=== PATIENT | female | born 1995 | race African-American/Black ===

== ENCOUNTER 2018-02-16 11:58 | Emergency (ER) | payer MEDICAID ==
[~2018-02-16] VITALS: Ht 157.5 cm; Wt 61.2 kg
[2018-02-16] MEDS ORDERED: ZOFRAN4 M3 ORAL (12:05)
[2018-02-16] MEDS ORDERED: PRENATAL FORMU1 EAC5 PO (12:05)
--- NOTE | 2018-02-16 12:12 | Emergency Room Report ---
History of Present Illness General Chief Complaint: Complications Source: Patient Present Illness HPI 22 yo female patient presents to ER complaining of vaginal spotting and cramping since this morning. Denies sharp abdominal pain, denies radiation of pain. Patient reports she is 7.5 weeks . Reports first . Patient denies use of pads. Also complains of morning sickness, denies blood in emesis. Patient reports single visit to OBGYN, currently taking Zofran and vitamins. Reports last took medication yesterday. Reports hx of follicular cyst removed by surgery; reports no complications since that time. Denies hx of blood pressure problems or past medical hx. Denies sonogram with IUP; reports followup appointment with OBGYN on the fifth with US scheduled. Denies passage of clots. Denies hematuria, dysuria. Denies hx of STI. Reports does not know BetaHCG level, states was confirmed by urine test. Denies fainting. Patient does not know Rh status.. Denies fever, chest pain, SOB, calf pain, LARRY, vision changes. Allergies: Coded Allergies: No Known Allergies (Unverified , 02/16/18) Patient History Past Medical History: see triage record Last Menstrual Period: dec 22 Now: Yes - 7 weeks : 1 Para: 0 Reviewed Nursing Documentation: PMH: Agreed; PSxH: Agreed Nursing Documentation-PMH Past Medical History: No Stated History Review of Systems All Other Systems: negative except mentioned in HPI Physical Exam Vital Signs Date Time Temp Pulse Resp B/P (MAP) Pulse Ox O2 Delivery O2 Flow Rate FiO2 02/16/18 12:00 97.9 89 18 115/74 98 Room Air 97.9 Sp02 EP Interpretation: reviewed, normal General Appearance: well appearing, no apparent distress, alert, GCS 15, non- toxic Head: normocephalic, atraumatic Eyes: bilateral eye normal inspection, bilateral eye PERRL ENT: hearing grossly normal, normal pharynx, no angioedema, normal voice, uvula midline, moist mucus membranes Neck: full range of motion Respiratory: lungs clear, normal breath sounds, no rhonchi, no respiratory distress, no accessory muscle use, no wheezing, speaking full sentences Cardiovascular #1: regular rate, rhythm, no edema Gastrointestinal: non tender, soft, no mass, non-distended, no guarding, no rebound Genitourinary: no CVA tenderness, deferred Musculoskeletal: back normal, digits/nails normal, gait/station normal, normal range of motion, non-tender Neurologic: alert, oriented x3, responsive, motor strength/tone normal, sensory intact Psychiatric: mood/affect normal Skin: no rash Lymphatic: no adenopathy Medical Decision Making PA Attestation Dr. Coon is my supervising Physician whom patient management has been discussed with. Diagnostic Impression: Primary Impression: Hyperemesis of Additional Impressions: Urinary tract infection Subchorionic hemorrhage Absent heart rate variability ER Course Pt presents to ED c/o vaginal spotting. DDX considered but are not limited to threatened , incomplete , complete , ectopic, UTI, septic . VITAL SIGNS are WNL, patient is afebrile Ordered CBC, CMP, Type and Screen, UA, UCG, bHCG, IV NS and pelvic US. Tylenol for pain control. Zofran for nausea. ER COURSE: Patient resting comfortably, in no acute distress, nontoxic appearing. Patient reports pain symptoms resolved since onset. Pelvic deferred. CBC shows WBC elevated to 13.9. CMP shows no elevation in LFTs UA results negative for nitrites, elevated WBC and leukocyte esterase. Equivocal UTI, will treat with abx at this time. Urine positive BetaHCG 78,328 Rh antibody negative Blood type B+ Informed patient of results. Discussed results with Dr. Coon, mild elevation in WBC during normal. Informed patient to take Tylenol only for pain symptoms, do not take Motrin/ Ibuprofen. Patient resting comfortably in no acute distress. Patient reports she is hungry and wants to go eat food. Did not like food provided in ER. US results show no pole or HR, gestational sac present, subchorionic hemorrhage. Discuss results with patient. Informed patient may be onset of /losing or gestational age may be incorrect, may be less than 7.5 weeks. Report of US provided to patient. Instructed to contact OBGYN to discuss followup. F/u with OBGYN for repeat US and serial Beta HCG measurements. Patient reports scheduled appointment next week. Instructed patient to call and inform OBGYN of results in ER today. Patient reports will do so. Take Zofran for vomiting. DISCHARGE: -Rx provided for Tylenol for pain -Rx provided for Keflex for UTI At this time pt. is stable for d/c to home. At this time patient is resting comfortably, in no acute distress, nontoxic appearing, smiling and talking without difficulty. Will provide printed patient care instructions, and any necessary prescriptions. Patient instructed to follow with OBGYN for further treatment and referral as needed. Care plan and follow up instructions have been discussed with the patient prior to discharge. Patient reports understanding and agreement to treatment plan. Patient questions asked and answered. ER precautions given, patient instructed to return to ER immediately for any new or worsening of symptoms. Labs Test 02/16/18 12:05 02/16/18 12:30 Urine Color Yellow Urine Appearance Slightly cloudy Urine pH 6 (4.5-8.0) Urine Specific [place] 1.015 (1.005-1.035) Urine Protein 1+ (NEGATIVE) Urine Glucose (UA) Negative (NEGATIVE) Urine Ketones 4+ (NEGATIVE) Urine Occult Blood 1+ (NEGATIVE) Urine Nitrite Negative (NEGATIVE) Urine Bilirubin Negative (NEGATIVE) Urine Urobilinogen Normal MG/DL (0.0-1.0) Urine Leukocyte Esterase 1+ (NEGATIVE) Urine RBC 0-2 /HPF (0 - 2) Urine WBC 5-10 /HPF (0 - 2) Urine Squamous Epithelial Cells Few /LPF (NONE/OCC) Urine Bacteria Few /HPF (NONE) Urine Mucus Few /LPF (NONE/OCC) Urine HCG, Qualitative Positive (NEGATIVE) White Blood Count 13.9 K/UL (4.8-10.8) Red Blood Count 5.26 M/UL (4.20-5.40) Hemoglobin 14.9 G/DL (12.0-16.0) Hematocrit 45.8 % (37.0-47.0) Mean Corpuscular Volume 87 FL (80-99) Mean Corpuscular Hemoglobin 28.3 PG (27.0-31.0) Mean Corpuscular Hemoglobin Concent 32.5 G/DL (32.0-36.0) Red Cell Distribution Width 12.4 % (11.6-14.8) Platelet Count 344 K/UL (150-450) Mean Platelet Volume 6.2 FL (6.5-10.1) Neutrophils (%) (Auto) % (45.0-75.0) Lymphocytes (%) (Auto) % (20.0-45.0) Monocytes (%) (Auto) % (1.0-10.0) Eosinophils (%) (Auto) % (0.0-3.0) Basophils (%) (Auto) % (0.0-2.0) Differential Total Cells Counted 100 Neutrophils % (Manual) 91 % (45-75) Lymphocytes % (Manual) 7 % (20-45) Monocytes % (Manual) 2 % (1-10) Eosinophils % (Manual) 0 % (0-3) Basophils % (Manual) 0 % (0-2) Band Neutrophils 0 % (0-8) Platelet Estimate Adequate Platelet Morphology Normal Red Blood Cell Morphology Normal Sodium Level 137 MMOL/L (136-145) Potassium Level 4.3 MMOL/L (3.5-5.1) Chloride Level 103 MMOL/L (98-107) Carbon Dioxide Level 27 MMOL/L (21-32) Anion Gap 7 mmol/L (5-15) Blood Urea Nitrogen 9 mg/dL (7-18) Creatinine 0.7 MG/DL (0.55-1.30) Estimat Glomerular Filtration Rate > 60 mL/min (>60) Glucose Level 80 MG/DL (74-106) Calcium Level 8.8 MG/DL (8.5-10.1) Total Bilirubin 0.2 MG/DL (0.2-1.0) Aspartate Amino Transf (AST/SGOT) 22 U/L (15-37) Alanine Aminotransferase (ALT/SGPT) 25 U/L (12-78) Alkaline Phosphatase 57 U/L (46-116) Total Protein 7.6 G/DL (6.4-8.2) Albumin 3.6 G/DL (3.4-5.0) Globulin 4.0 g/dL Albumin/Globulin Ratio 0.9 (1.0-2.7) Lipase 220 U/L (73-393) Human Chorionic Gonadotropin, Quant 35240 mIU/mL (1-6) CT/MRI/US Diagnostic Results CT/MRI/US Diagnostic Results : Imaging Test Ordered: Pelvic US Impression Intrauterine gestational sac, containing a yolk sac pole or heart activity are not visualized. Viability of the therefore indeterminate. Recommend correlation with serial beta-hCGs and recommend follow- up sonography as indicated Suspect small subchorionic hemorrhage Small amount free cul-de-sac fluid, presumed physiologic Normal ovaries Last Vital Signs Date Time Temp Pulse Resp B/P (MAP) Pulse Ox O2 Delivery O2 Flow Rate FiO2 02/16/18 12:00 97.9 89 18 115/74 98 Room Air 97.9 Disposition: HOME, SELF-CARE Condition: Stable Scripts Acetaminophen* (TYLENOL EXTRA STRENGTH*) 500 Mg Tablet 500 MG ORAL Q8H PRN for Prn Headache/Temp > 101, #30 TAB 0 Refills Prov: Gerardo Lorenzo 02/16/18 Cephalexin* (KEFLEX*) 500 Mg Capsule 500 MG ORAL EVERY 12 HOURS for 7 Days, #14 CAP 0 Refills Prov: Gerardo Lorenzo 02/16/18 Patient Instructions: First Trimester of , [id number], Hyperemesis Gravidarum, Urinary Tract Infection, [id number], Vaginal Bleeding During , First Trimester, [id number] Additional Instructions: Followup with OBGYN at scheduled appointment on the 26 of February. Serial beta HCG measurements and repeat US performed at followup appointment. Take medications as directed. Take Tylenol for pain, do not take Ibuprofen. Take Zofran for nausea symptoms. Patient questions asked and answered. ER precautions given, patient instructed to return to ER immediately for any new or worsening of symptoms including but not limited to chest pain, SOB, intractable vomiting, profuse vaginal bleeding, abdominal pain. BetaHCG 78,328 Rh antibody negative Blood type B+ Gerardo Lorenzo Feb 16, 2018 12:11
[2018-02-16] MEDS ORDERED: Acetaminophen 500mg (ES) tab ORAL ONE (12:15)
[2018-02-16 13:04] LABS: HEMATOCRIT 45.8 % (37.0-47.0); HEMOGLOBIN 14.9 G/DL (12.0-16.0); MEAN CORPUSCULAR VOLUME 87 FL (80-99); PLATELET COUNT 344 K/UL (150-450); RED BLOOD COUNT 5.26 M/UL (4.20-5.40); RED CELL DISTRIBUTION WIDTH 12.4 % (11.6-14.8); WHITE BLOOD COUNT 13.9 K/UL (4.8-10.8)
[2018-02-16 13:04] LABS: APPEARANCE,URINE SLIGHTLY CLOUDY; BILIRUBIN, URINE NEGATIVE (NEGATIVE); GLUCOSE, URINE (UA) NEGATIVE (NEGATIVE); KETONES,URINE 4+ (NEGATIVE); LEUKOCYTE ESTERASE ,URINE 1+ (NEGATIVE); NITRITE,URINE NEGATIVE (NEGATIVE); PH,URINE 6 (4.5-8.0); PROTEIN,URINE 1+ (NEGATIVE); UROBILINOGEN,URINE NORMAL MG/DL (0.0-1.0)
[2018-02-16 13:05] LABS: COLOR,URINE YELLOW
[2018-02-16 13:07] LABS: ANION GAP 7 mmol/L (5-15); BLOOD UREA NITROGEN 9 mg/dL (7-18); CALCIUM 8.8 MG/DL (8.5-10.1); CARBON DIOXIDE 27 MMOL/L (21-32); CHLORIDE 103 MMOL/L (98-107); CREATININE 0.7 MG/DL (0.55-1.30); POTASSIUM 4.3 MMOL/L (3.5-5.1); SODIUM 137 MMOL/L (136-145)
[2018-02-16 13:11] LABS: ALANINE AMINOTRANSFERASE 25 U/L (12-78); ALBUMIN 3.6 G/DL (3.4-5.0); ALBUMIN/GLOBULIN RATIO 0.9 (1.0-2.7); ALKALINE PHOSPHATASE 57 U/L (46-116); ASPARTATE AMINO TRANSFERASE 22 U/L (15-37); BILIRUBIN,TOTAL 0.2 MG/DL (0.2-1.0)
[2018-02-16] MEDS ORDERED: CEPHALEXIN500 MG ORAL (14:45)
[2018-02-16] MEDS ORDERED: TYLENOL EXTRA500 MG ORAL (14:45)
--- NOTE | 2018-02-16 15:30 | Diagnostic Imaging Report ---
Indication: Positive test, vaginal spotting and cramping Technique: Transabdominal and transvaginal images Comparison: none Findings: Uterus measures 8.4 cm length by 6 cm AP. Within the endometrium, there is a gestational sac which contains a yolk sac. No heart activity or definite pole demonstrated. Mean gestational sac size is 31 mm, corresponding assessment gestational age of 7 weeks 5 days. There is a small subchorionic hemorrhage noted measuring approximately 2 x 1 cm. No myometrial abnormality. No adnexal mass demonstrated. Right ovary measures 3.3 cm length. Left ovary is only seen transabdominally, measures 3.2 cm in length. Small amount of free cul-de-sac fluid is demonstrated Impression: Intrauterine gestational sac, containing a yolk sac pole or heart activity are not visualized. Viability of the therefore indeterminate. Recommend correlation with serial beta-hCGs and recommend follow-up sonography as indicated Suspect small subchorionic hemorrhage Small amount free cul-de-sac fluid, presumed physiologic Normal ovaries
[2018-02-16 16:26] VITALS: BP 115/74
== END 2018-02-16 16:33 | disposition home or self-care (01) ==
LOC: EMR 12:35
DX: O21.0 Mild hyperemesis gravidarum (principal); O46.8X1 Other antepartum hemorrhage, first trimester; O23.41 Unspecified infection of urinary tract in pregnancy, first trimester; O76 Abnormality in fetal heart rate and rhythm complicating labor and delivery; Z3A.01 Less than 8 weeks gestation of pregnancy
CPT/HCPCS: 36415; 76801; 80053; 81003; 81025; 83690; 84702; 85007; 85025; 86850; 86900; 86901; 96374; 99284

== ENCOUNTER 2018-06-15 11:50 | Emergency (ER) | payer MEDICAID ==
[~2018-06-15] VITALS: Ht 157.5 cm; Wt 54.4 kg
[~2018-06-15 11:50] MED LIST: CEPHALEXIN500 MG ORAL; PRENATAL FORMU1 EAC5 PO; TYLENOL EXTRA500 MG ORAL; ZOFRAN4 M3 ORAL
[2018-06-15 12:04] VITALS: BP 104/68
--- NOTE | 2018-06-15 12:15 | Emergency Room Report ---
History of Present Illness General Chief Complaint: Asthma Source: Patient Present Illness HPI 22 YO female presents to ED C/O acute asthma attack x 1 day. pt. out of her inhaler. pt. reports asthma normally well controlled, and has not had a full blown attack in several months, denies fevers, chills, N/V, recent travel, ill contacts or neck pain/stiffness. pt. denies rashes, or swelling of the lips or tongue. reports wheezes intermittently now. denies pain. denies cp or palpitations. Allergies: Coded Allergies: No Known Allergies (Unverified , 02/16/18) Patient History Past Medical History: see triage record Past Surgical History: none Pertinent Family History: none Last Menstrual Period: 06/07/18 Now: No Reviewed Nursing Documentation: PMH: Agreed; PSxH: Agreed Nursing Documentation-PMH Hx Asthma: Yes Review of Systems All Other Systems: negative except mentioned in HPI Physical Exam Vital Signs Date Time Temp Pulse Resp B/P (MAP) Pulse Ox O2 Delivery O2 Flow Rate FiO2 06/15/18 11:56 98.1 70 14 104/68 100 Room Air 98.1 Sp02 EP Interpretation: reviewed, normal General Appearance: no apparent distress, alert, GCS 15, non-toxic Head: normocephalic, atraumatic Eyes: bilateral eye normal inspection, bilateral eye PERRL ENT: hearing grossly normal, normal voice Neck: full range of motion Respiratory: chest non-tender, lungs clear, speaking full sentences, wheezing - scant bilaterally upper airways Cardiovascular #1: regular rate, rhythm Rectal: deferred Genitourinary: normal inspection Musculoskeletal: back normal, gait/station normal, normal range of motion, non- tender Neurologic: alert, oriented x3, responsive, motor strength/tone normal, sensory intact, speech normal, grossly normal Psychiatric: judgement/insight normal Skin: normal color, no rash, warm/dry, well hydrated Lymphatic: no adenopathy Medical Decision Making PA Attestation Dr. Camacho is my supervising Physician whom patient management has been discussed with. Diagnostic Impression: Primary Impression: Asthma Qualified Codes: J45.901 - Unspecified asthma with (acute) exacerbation ER Course 22 YO female presents to ED C/O acute asthma attack x 1 day. pt. out of her inhaler. pt. reports asthma normally well controlled, and has not had a full blown attack in several months, denies fevers, chills, N/V, recent travel, ill contacts or neck pain/stiffness. pt. denies rashes, or swelling of the lips or tongue. reports wheezes intermittently now. denies pain. denies cp or palpitations. Ddx considered but are not limited to asthma exacerbation, CHF, URI, pneumonia, PE, strep pharyngitis, meningitis. Vital signs: Pt. is afebrile, VS are WNL H&PE are most consistent with URI, asthma exacerbation ORDERS: none required at this time, the diagnosis is clinical ED INTERVENTIONS: - none required at this time. DISCHARGE: At this time pt. is stable for d/c to home. Will provide printed patient care instructions, and any necessary prescriptions. Care plan and follow up instructions have been discussed with the patient prior to discharge. Last Vital Signs Date Time Temp Pulse Resp B/P (MAP) Pulse Ox O2 Delivery O2 Flow Rate FiO2 06/15/18 12:04 70 14 Room Air 06/15/18 12:04 98.1 104/68 100 98.1 Disposition: HOME, SELF-CARE Condition: Stable Scripts Albuterol Sulfate* (ALBUTEROL SULFATE MDI*) 8.5 Gm Hfa.aer.ad 2 PUFF INH Q4H, #1 INH 0 Refills Prov: Irene Aparicio 06/15/18 Patient Instructions: Asthma, Adult Additional Instructions: Take medications as directed. Follow up with a Primary Care Provider in 3-5 days, even if your symptoms have resolved. --Please review list of primary care clinics, if you do not already have a primary care provider Return sooner to ED if new symptoms occur, or current symptoms become worse. - Please note that this Emergency Department Report was dictated using [employer] sander technology software, occasionally this can lead to erroneous entry secondary to interpretation by the dictation equipment. Irene Aparicio Jun 15, 2018 12:15
[2018-06-15] MEDS ORDERED: ALBUTEROL SULF8.5 GM INH (12:16)
[2018-06-15 12:30] VITALS: BP 104/68
== END 2018-06-15 12:30 | disposition home or self-care (01) ==
LOC: EMR 12:11
DX: J45.909 Unspecified asthma, uncomplicated (principal)
CPT/HCPCS: 99283